=== PATIENT | male | born 1995 | race Caucasian/White ===

== ENCOUNTER 2016-12-30 16:17 | Emergency (ER) | payer OTHER ==
[2016-12-30 17:05] VITALS: BP 123/57; PULSE 62; TEMP 98.1; BMI 23.8
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
== END 2016-12-30 17:45 | disposition home or self-care (01) ==
LOC: JERFT 16:17
DX: L76.32 Postprocedural hematoma of skin and subcutaneous tissue following other procedure (principal); Y83.8 Other surgical procedures as the cause of abnormal reaction of the patient, or of later complication, without mention of misadventure at the time of the procedure
CPT/HCPCS: 99281-25